=== PATIENT | male | born 1960 | race Caucasian/White ===

== ENCOUNTER 2020-12-02 08:16 | Day surgery (SDC) | payer OTHER ==
[~2020-12-02] VITALS: Ht 185.4 cm; Wt 80.4 kg
--- NOTE | 2020-12-02 08:36 | NUR ---
12/02/20 0836 Jillian Damian 0833 ONE DROP OF TETRACAINE INSTILLED IN LEFT EYE PER ORDERS BY [email or web address]. 0835 PLEDGIT IS PLACED IN LEFT EYE PER ORDERS BY [email or web address].
== END 2020-12-02 09:55 | disposition home or self-care (01) ==
LOC: ORSCSDS 08:16
PROVIDERS: Ophthalmology
PROC: 08RK3JZ Replacement of Left Lens with Synthetic Substitute, Percutaneous Approach (ICD-10-PCS; principal; 2020-12-02 09:30)
DX: H25.12 Age-related nuclear cataract, left eye (principal); Z87.891 Personal history of nicotine dependence
CPT/HCPCS: A9270; J2001; J2250; J3010; J3301; J7040; V2632

== ENCOUNTER 2021-01-06 08:13 | Day surgery (SDC) | payer OTHER ==
[~2021-01-06] VITALS: Ht 185.4 cm; Wt 79.4 kg
--- NOTE | 2021-01-06 08:44 | NUR ---
01/06/21 0844 Jillian Damian TETRACAINE DROPPED PLACED IN RIGHT EYE PER ORDERS AT 0840 PLEDGIT PLACED IN RIGHT EYE PER ORDERS AT 0843.
[2021-01-06] MEDS ORDERED: Lisinopril2.5 MG (08:49)
== END 2021-01-06 10:14 | disposition home or self-care (01) ==
LOC: ORSCSDS 08:13
PROVIDERS: Ophthalmology
PROC: 08RJ3JZ Replacement of Right Lens with Synthetic Substitute, Percutaneous Approach (ICD-10-PCS; principal; 2021-01-06 09:30)
DX: H25.11 Age-related nuclear cataract, right eye (principal); I10 Essential (primary) hypertension; Z79.899 Other long term (current) drug therapy
CPT/HCPCS: A9270; J2001; J2250; J3010; J3301; J7040; V2632